=== PATIENT | male | born 1990 | race American Indian/Alaskan Native ===

== ENCOUNTER 2018-05-20 09:43 | Emergency (ER) | payer OTHER ==
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
[2018-05-20] MEDS ORDERED: FLEXERIL PO ONE (11:06)
[2018-05-20] MEDS ORDERED: MOTRIN PO ONE (11:06)
[2018-05-20 12:45] VITALS: BP 152/78
== END 2018-05-20 12:32 | disposition home or self-care (01) ==
LOC: ED 09:43
DX: S16.1XXA Strain of muscle, fascia and tendon at neck level, initial encounter (principal); M62.830 Muscle spasm of back; M54.5 Low back pain; F17.200 Nicotine dependence, unspecified, uncomplicated; V49.09XA Driver injured in collision with other motor vehicles in nontraffic accident, initial encounter; Y93.89 Activity, other specified; Y99.8 Other external cause status; Y92.488 Other paved roadways as the place of occurrence of the external cause
CPT/HCPCS: 99283